=== PATIENT | male | born 1965 | race Caucasian/White ===

== ENCOUNTER 2020-06-05 01:38 | Emergency (ER) | payer SELFPAY ==
[~2020-06-05] VITALS: Ht 175.3 cm; Wt 83.9 kg
--- NOTE | 2020-06-05 01:45 | NUR ---
PT JAMEL AND [facility] FROM [facility] FOR ACTING BIZARREE. PER ASSESSMENT DENIES SI AND HI. STATING HE IS BEING WATCHED BY [employer] AND [employer]. NO ACUTE DISTRESS NOTED. VSS. AWAITING MD FOR EVAL.
[2020-06-05] MEDS ORDERED: OLANZAPINE 5 MG TABLET PO ONE (02:00)
--- NOTE | 2020-06-05 02:49 | NUR ---
RESTING COMFORTABLY. VSS.
[2020-06-05 02:55] LABS: BASOPHILS # (AUTO) 0.1 /CMM (0.0-0.2); BASOPHILS % (AUTO) 0.4 % (0.0-2.0); EOSINOPHILS % (AUTO) 0.2 % (0.0-6.0); HEMATOCRIT 42 % (39-51); HEMOGLOBIN 13.7 g/dL (13.5-17.5); LYMPHOCYTES # (AUTO) 1.6 /CMM (0.8-4.8); LYMPHOCYTES % (AUTO) 10.6 % (20.0-44.0); MEAN CORPUSCULAR HGB CONC 33 g/dl (31.0-36.0); MEAN CORPUSCULAR VOLUME 89 fL (80-96); MONOCYTES # (AUTO) 1.1 /CMM (0.1-1.30); MONOCYTES % (AUTO) 7.3 % (2.0-12.0); NEUTROPHILS # (AUTO) 12.2 /CMM (1.8-8.9); NEUTROPHILS % (AUTO) 81.5 % (43.0-81.0); PLATELET COUNT (AUTO) 400 /CMM (150-450); RED BLOOD CELL COUNT(AUTO) 4.72 MIL/uL (4.5-6.0)
[2020-06-05 03:07] LABS: APPEARANCE,URINE CLEAR (CLEAR); BILIRUBIN,URINE SMALL (NEGATIVE); BLOOD, URINE NEGATIVE Ery/uL (NEGATIVE); COLOR,URINE YELLOW (YELLOW); KETONES,URINE TRACE (NEGATIVE); LEUKOCYTE ESTERASE ,URINE NEGATIVE (NEGATIVE); NITRITE, URINE NEGATIVE (NEGATIVE); PROTEIN,URINE 100 mg/dl (NEGATIVE); UGLUCOSE NEGATIVE (NEGATIVE)
[2020-06-05 03:08] LABS: ALANINE AMINOTRANSFERASE 23 U/L (12-78); ALBUMIN 4.2 g/dL (3.4-5.0); ALCOHOL, BLOOD < 3 mg/dL (0-0); ALKALINE PHOSPHATASE 104 U/L (46-116); ASPARTATE AMINOTRANSFERASE 21 U/L (15-37); BILIRUBIN,DIRECT 0.1 mg/dL (0.0-0.2); BILIRUBIN,TOTAL 0.3 mg/dL (0.2-1.0); CALCIUM, SERUM 8.9 mg/dL (8.5-10.1); CARBON DIOXIDE 29 mmol/L (21-32); CHLORIDE 100 mmol/L (98-107); CREATININE 2.1 mg/dL (0.6-1.3); GLUCOSE 88 mg/dL (74-106); POTASSIUM 4.6 mmol/L (3.5-5.1); SODIUM SERUM 137 mmol/L (136-145); UREA NITROGEN, BLOOD 21 mg/dL (7-18)
[2020-06-05 03:09] LABS: ACETAMINOPHEN 0 ug/ml (10-30); SALICYLATE 2.1 mg/dL (2.8-20.0)
[2020-06-05 03:14] LABS: BACTERIA,URINE Few /HPF (None Seen); CALCIUM OXALATE CRYSTALS,UR Many /HPF (None Seen); RBC,URINE 0-2 /HPF (0-2)
[2020-06-05] MEDS ORDERED: OLANZAPINE 5 MG TABLET ONE (03:14)
[2020-06-05 03:15] LABS: SQUAMOUS EPITHELIAL CELL,UR Few /HPF (None Seen)
--- NOTE | 2020-06-05 03:22 | NUR ---
PT ASLEEP/ VSS.
[2020-06-05 04:06] LABS: TOTAL PROTEIN, SERUM 10.1 g/dL (6.4-8.2)
--- NOTE | 2020-06-05 04:42 | NUR ---
PT REMAINS ASLEEP. VSS.
--- NOTE | 2020-06-05 05:36 | NUR ---
RESTING COMFORTABLY. PROVIDED WITH WATER AND CRACKERS.
[2020-06-05 07:10] VITALS: BP 111/71
--- NOTE | 2020-06-05 07:10 | NUR ---
Patient discharged to home in stable condition. Written and verbal after care instructions given. Patient verbalizes understanding of instruction. Pt ambualted with steady gait, vss.
== END 2020-06-05 07:10 | disposition home or self-care (01) ==
LOC: ER 01:40
DX: F19.10 Other psychoactive substance abuse, uncomplicated (principal); F22 Delusional disorders; Z60.2 Problems related to living alone
CPT/HCPCS: 36415; 80048; 80076; 80305; 80307; 80329; 81001; 85025; 87086; 99283; G0480; 81000-TC